=== PATIENT | female | born 1980 | race Caucasian/White ===

== ENCOUNTER → 2022-06-15 08:55 | Outpatient (CLI) | payer OTHER, SELFPAY ==
--- NOTE | ~2022-06-15 | US_ITS ---
EXAMINATION: US thyroid DATE: 06/15/2022 09:19 INDICATION: Nontoxic goiter, unspecified. TECHNIQUE: Multiple ultrasound images of the thyroid were obtained. COMPARISON: Ultrasound 05/29/2019, 03/08/2017 FINDINGS: The right thyroid lobe measures 5.8 x 1.8 x 1.3 cm. The left thyroid lobe measures 4.2 x 1.5 x 1.6 c m. In the right thyroid lobe, there is a 4 mm nodule. In the left thyroid lobe, there is a 4 mm nodu le. The thyroid demonstrates increased vascularity. IMPRESSION: 1. Small thyroid nodules, likely not clinically significant. No follow-up is needed. Reviewed, dictated and finalized at location A. IMPRESSION: 1. Small thyroid nodules, likely not clinically significant. No follow-up is ne eded.
== END ==
PROVIDERS: PCP Physician Assistant Medical; Visit Provider Nurse Practitioner
DX: E04.2 Nontoxic multinodular goiter (principal)
CPT/HCPCS: 76536

== ENCOUNTER 2023-07-17 13:49 | Outpatient (CLI) | payer OTHER, SELFPAY ==
--- NOTE | ~2023-07-17 | MR_ITS ---
EXAMINATION: MR brain IAC wo/w con DATE: 07/17/2023 15:50 INDICATION: Lightheadedness. Ear pressure. Tingling in the hands. TECHNIQUE: Magnetic resonance imaging (MRI) of the brain, brainstem, and internal auditory canals was performed without and with 14 mL MultiHance intravenous contrast. COMPARISON: None. FINDINGS: There is no intracranial hemorrhage, acute infarction, or abnormal intracranial mass lesion . The ventricles are normal in size. The orbits are normal. The paranasal sinuses are clear. The inte rnal auditory canals, inner ears, and tympanic cavities are normal. The mastoid air cells are normal. IMPRESSION: 1. Normal brain. Reviewed, dictated and finalized at location A. IMPRESSION: 1. Normal brain.
--- NOTE | ~2023-07-17 | MR_ITS ---
EXAMINATION: MR cervical spine wo con DATE: 07/17/2023 15:50 INDICATION: Neck pain. TECHNIQUE: Magnetic resonance imaging (MRI) of the cervical spine was performed without intravenous c ontrast. COMPARISON: Cervical spine radiographs 07/11/2023 FINDINGS: There is 7 degrees dextrocurvature of cervical spine. Vertebral body heights are normal. In tervertebral disc heights are normal. The spinal cord signal intensity is normal. The following disc levels are specifically discussed: C2-C3: The disc does not extend beyond the endplate margin. There is no uncovertebral joint osteoarth ritis. There is moderate right and mild left facet joint osteoarthritis. There is no neural foraminal stenosis. There is no central canal stenosis. C3-C4: There is a central protrusion. There is mild bilateral uncovertebral joint osteoarthritis. The re is mild bilateral facet joint osteoarthritis. There is mild bilateral neural foraminal stenosis. T here is mild central canal stenosis. C4-C5: There is a central protrusion. There is no uncovertebral joint osteoarthritis. There is modera te left facet joint osteoarthritis. There is no neural foraminal stenosis. There is mild central bean l stenosis. C5-C6: There is a left central protrusion. There is mild left uncovertebral joint osteoarthritis. The re is mild right facet joint osteoarthritis. There is mild left neural foraminal stenosis. There is m ild central canal stenosis. C6-C7: There is a central protrusion. There is no uncovertebral joint osteoarthritis. There is no fac et joint osteoarthritis. There is no neural foraminal stenosis. There is no central canal stenosis. C7-T1: The disc does not extend beyond the endplate margin. There is no uncovertebral joint osteoarth ritis. There is no facet joint osteoarthritis. There is no neural foraminal stenosis. There is no aleyda tral canal stenosis. IMPRESSION: 1. Mild cervical spondylosis. Reviewed, dictated and finalized at location A.
== END 2023-07-17 13:50 ==
LOC: GOSHIMG 13:50
PROVIDERS: PCP Physician Assistant Medical; Visit Provider Physician Assistant Medical
DX: M47.812 Spondylosis without myelopathy or radiculopathy, cervical region (principal)
CPT/HCPCS: 70553; 72141; A9577

== ENCOUNTER → 2023-09-06 10:48 | Outpatient (CLI) | payer OTHER, SELFPAY ==
--- NOTE | ~2023-09-06 | MR_ITS ---
MRI of the lumbar spine Clinical History: Paresthesia Technique: Axial T2-weighted and gradient images, and sagittal T1-weighted, T2-weighted, and STIR leidy ges were acquired. Findings: There is no fracture or subluxation of the lumbar spine. Vertebral bodies maintain normal h eight and alignment. No bone marrow signal abnormality seen. At L1-L2, L2-L3, L3-L4, there is no disc bulge or herniation. There are minimal facet joint degenerat jazmín changes at these levels. No spinal canal stenosis or definite neural foraminal narrowing at these levels. At L4-L5, there is mild disc bulge with mild facet arthropathy. No central canal stenosis. Probable m inimal bilateral neural foraminal narrowing. At L5-S1, there is no disc bulge or herniation. No spinal canal stenosis or neural foraminal narrowin g. Paravertebral soft tissues are unremarkable. Impression: Mild degenerative spondylosis at L4-L5. Reviewed, dictated and finalized at location . [employer] [facility] Impression: Mild degenerative spondylosis at L4-L5.
--- NOTE | ~2023-09-06 | US_ITS ---
US thyroid INDICATION: Nontoxic multinodular goiter TECHNIQUE: Real-time sonographic images of the thyroid gland were obtained. COMPARISON: Ultrasound dated 06/15/2022 FINDINGS: The right thyroid lobe measures 5.5 x 1.6 x 1.8 cm. The left thyroid lobe measures 5 x 1.4 x 1.2 cm. There is normal echotexture and echogenicity throughout the thyroid gland. In the right lo be there is a hypoechoic mass which is solid, wider than tall, smoothly marginated with macrocalcific ations, measuring 6 x 5 x 5 mm, TR 4 no discrete left thyroid mass identified.. IMPRESSION: 1. Probable benign 6 mm right thyroid mass, TR 4. Reviewed, dictated and finalized at location A. [employer]
== END ==
PROVIDERS: Visit Provider Physician Assistant Medical
DX: E04.2 Nontoxic multinodular goiter (principal); R20.2 Paresthesia of skin; R41.89 Other symptoms and signs involving cognitive functions and awareness; M54.50 Low back pain, unspecified; M47.896 Other spondylosis, lumbar region
CPT/HCPCS: 72148; 76536

== ENCOUNTER 2023-09-22 14:29 | Outpatient (CLI) | payer OTHER, SELFPAY ==
[2023-09-22 14:49] LABS: Basophils Percent Auto 0.7 % (0.2-1.2); Eosinophils Percent Auto 0.2 % (0-4.4); Hematocrit 40.6 % (37.0-47.0); Immature Granulocyte Absolute 0.01 K/mm3 (0.00-0.031); Immature Granulocyte Percent A 0.2 % (0-0.5); Lymphocytes Absolute Auto 0.94 K/mm3 (0.9-3.2); Mean Corpuscular HGB Conc 34.5 g/dl (32-36); Mean Corpuscular Volume 95.8 fl (80-100); Mean Platelet Volume 9.3 fl (7.4-10.4); Monocytes Absolute Auto 0.5 K/mm3 (0.1-0.6); Monocytes Percent Auto 8.8 % (2.6-8.5); Neutrophils Absolute Auto 4.1 K/mm3 (1.3-6.7); Neutrophils Percent Auto 73.1 % (45.5-73.1); Platelet Count Result 268 k/mm3 (150-375); Red Blood Count 4.24 M/mm3 (4.2-5.4); Red Cell Distribution Width 12.7 % (11.5-14.5); White Blood Count 5.5 K/mm3 (4.5-10.0)
[2023-09-22 19:30] LABS: Iron 117 ug/dL (37-170)
[2023-09-22 19:36] LABS: Alanine Aminotransferase 17 U/L (6-35); Albumin Level 4.3 g/dL (3.5-5.1); Alkaline Phosphatase 79 U/L (38-126); Anion Gap 7 mmol/L (8-16); Aspartate Amino Transferase 27 U/L (14-36); Bilirubin,Total 0.8 mg/dL (0.2-1.3); Blood Urea Nitrogen 7 mg/dL (7-17); CRP < 0.5 mg/dL (<1.0); Calcium 9.6 mg/dL (8.4-10.2); Carbon Dioxide 27 mmol/L (22-30); Chloride 104 mmol/L (98-107); Estimated Glomerular Filt Rate > 60; Glucose 79 mg/dL (65-110); Lactate Dehydrogenase 173 U/L (120-246); Potassium 3.9 mmol/L (3.4-5.0); Sodium 138 mmol/L (137-145)
[2023-09-22 19:40] LABS: Percent Iron Saturation 28 % (20-50)
[2023-09-22 19:52] LABS: Transferrin 347 mg/dL (206-381)
[2023-09-22 20:53] LABS: Folic Acid > 20.0 ng/mL (2.76->20)
[2023-09-25 06:59] LABS: Methylmalonic Acid 58 nmol/L (87-318)
== END 2023-09-22 14:30 | disposition home or self-care (01) ==
LOC: ANHLAB 14:30
PROVIDERS: PCP Physician Assistant Medical; Visit Provider Internal Medicine Hematology & Oncology
DX: D64.9 Anemia, unspecified (principal)
CPT/HCPCS: 36415; 80053; 82607; 82728; 82746; 83540; 83550; 83615; 83921; 84466; 85025; 86038; 86039; 86140